=== PATIENT | female | born 1965 | race African-American/Black ===

== ENCOUNTER 2018-01-30 17:49 | Emergency (ER) | payer OTHER ==
[~2018-01-30] VITALS: Ht 167.6 cm; Wt 99.8 kg
[2018-01-30 18:09] VITALS: BP_SYST 134
--- NOTE | 2018-01-30 19:15 | NUR ---
Placed in ER bed 4 to gown for examination.
--- NOTE | 2018-01-30 19:25 | NUR ---
Pt complains of dizziness for the past couple of weeks but relayed that dizziness has gotten worse today. Pt states she was driving and started to feel extremely dizzy. Denies losing consciousness. Pt states once she felt dizzy, she had her mom drive her to ED. Pt denies N/V, fever, photosensitivity. No other injuries/complaints per patient or noted.
--- NOTE | 2018-01-30 20:00 | NUR ---
NAN [facility] at bedside examining patient.
[2018-01-30] MEDS ORDERED: LORATADINE 10 MG TABLET PO ONE (20:15)
[2018-01-30] MEDS ORDERED: MECLIZINE HCL 25 MG TABLET (ANITVERT) PO ONE (20:15)
--- NOTE | 2018-01-30 20:20 | NUR ---
Medications were given, pt tolerated well. No adverse reaction, will continue to monitor.
[2018-01-30 20:33] LABS: BASOPHILS # (AUTO) 0.1 K/uL (0.0-0.2); EOSINOPHILS # (AUTO) 0.1 K/uL (0.0-0.4); MEAN CORPUSCULAR VOLUME 88 fL (79.0-98.0); MONOCYTES # (AUTO) 0.5 K/uL (0.0-1.0)
[2018-01-30 20:36] LABS: BASOPHILS % (AUTO) 0.8 % (0.0-2.0); EOSINOPHILS % (AUTO) 0.6 % (0.0-4.0); HEMATOCRIT 41.9 % (36-48); HEMOGLOBIN 13.2 g/dL (12.0-16.0); LYMPHOCYTES # (AUTO) 2.1 K/uL (1.0-5.5); LYMPHOCYTES % (AUTO) 18.4 % (20.5-51.5); MEAN CORPUSCULAR HEMOGLOBIN 28 pg (27-31); MEAN CORPUSCULAR HGB CONC 32 % (32-36); MONOCYTES % (AUTO) 4.6 % (1.7-9.3); NEUTROPHILS # (AUTO) 8.5 K/uL (1.8-7.7); NEUTROPHILS % (AUTO) 75.6 % (40.0-70.0); PLATELET COUNT (AUTO) 324 K/uL (130-430); RED BLOOD CELL COUNT(AUTO) 4.74 MIL/uL (4.2-6.2); RED CELL DISTRIBUTION WIDTH 14.1 % (9.0-15.0); WHITE BLOOD COUNT (AUTO) 11.3 K/uL (4.8-10.8)
[2018-01-30 20:45] LABS: CALCIUM 9.6 mg/dL (8.4-11.0); CREATININE 0.69 mg/dL (0.55-1.30); POTASSIUM 3.5 mmol/L (3.5-5.1)
[2018-01-30 20:50] LABS: ALBUMIN 3.6 g/dL (3.4-4.8); TOTAL BILIRUBIN 0.3 mg/dL (0.0-1.0)
[2018-01-30] MEDS ORDERED: FLUTICASONE PROPIONATE 50 mCg/SPRAY 16 GM NS SCH (21:00)
[2018-01-30] MEDS ORDERED: AZITHROMYCIN 250 MG TABLET PO ONE (21:30)
[2018-01-30 21:55] VITALS: BP_SYST 131
--- NOTE | 2018-01-30 21:55 | NUR ---
Patient given written and verbal discharge instructions and verbalizes understanding. ER MD discussed with patient the results and treatment provided. Patient in stable condition. ID arm band removed. Rx of Flonase, Azithromycin, and Zyrtec given. Patient educated on pain management and to follow up with PMD. Pain Scale 0. Opportunity for questions provided and answered. Medication side effect fact sheet provided.
== END 2018-01-30 21:55 | disposition home or self-care (01) ==
LOC: SED 17:49
DX: J32.9 Chronic sinusitis, unspecified (principal); I10 Essential (primary) hypertension; Z88.8 Allergy status to other drugs, medicaments and biological substances
CPT/HCPCS: 36415; 70450; 80053; 85025; 93005; 99285; J8597; Q0144